=== PATIENT | female | born 1940 | race Asian ===

== ENCOUNTER 2018-06-09 10:32 | Emergency (ER) | payer OTHER, MEDICARE ==
[2018-06-09] MEDS ORDERED: TYLENOL ONE (10:37)
[2018-06-09] MEDS ORDERED: TYLENOL PO ONE (10:38)
[2018-06-09 11:46] LABS: Basophils % (Auto) 0.3 % (0.0-1.8); Eosinophils % (Auto) 0.1 % (0.0-4.3); Hematocrit 29.9 % (30.3-42.9); Lymphocytes # (Auto) 1.3 K/mm3 (1.2-5.4); Lymphocytes % (Auto) 14.3 % (13.4-35.0); Mean Corpuscular HGB Conc 34 % (30-34); Mean Corpuscular Hemoglobin 30 pg (28-32); Mean Corpuscular Volume 89 fl (79-97); Monocytes # (Auto) 1.2 K/mm3 (0.0-0.8); Monocytes % (Auto) 12.4 % (0.0-7.3); Platelet Count 552 K/mm3 (140-440); Red Blood Count 3.35 M/mm3 (3.65-5.03); Red Cell Distribution Width 14.7 % (13.2-15.2)
--- NOTE | 2018-06-09 12:03 | XRay Report ---
ROUTINE CHEST, TWO VIEWS: HISTORY: Fever. The trachea, heart, mediastinal contour, lung brown and bony thorax are unremarkable. IMPRESSION: Unremarkable chest x-ray.
[2018-06-09 12:10] LABS: Alanine Aminotransferase 28 units/L (7-56); Albumin 3.4 g/dL (3.9-5); BUN/Creatinine Ratio 28; Blood Urea Nitrogen 14 mg/dL (7-17); Calcium 8.5 mg/dL (8.4-10.2); Hemolysis Index 5
--- NOTE | 2018-06-09 13:02 | Emergency Department Report ---
ED Lower Extremity HPI - General Chief Complaint: Fever Stated Complaint: FEVER/ LEG PAIN Time Seen by Provider: 06/09/18 12:46 Source: patient, family Mode of arrival: Wheelchair Limitations: Language Barrier - History of Present Illness Initial Comments: Mrs. Angeles is a healthy 77-year-old female who presents with right knee pain for 2-3 weeks. She's had intermittent swelling. Pain with movement. No injury. Last night she developed fever and shaking chills sweats. Daughter explained that the swelling has decreased in the right knee. She is able to move it better after receiving Tylenol. She does have a PCP. Daughter is unable to recall the name of PCP. Daughter at bedside provided language interpretation. MD Complaint: knee injury -: Gradual, week(s) (2-3) Injury: Knee: Right Severity: moderate Improves With: other (Tylenol) Worsens With: movement Associated Symptoms: swelling, able to partially bear weight - Related Data Previous Rx's Medication Instructions Recorded Last Taken Type Acetaminophen [Tylenol Extra 500 mg PO QID PRN #30 tablet 06/09/18 Unknown Rx Strength] Allergies Allergy/AdvReac Type Severity Reaction Status Date / Time No Known Allergies Allergy Unverified 06/09/18 10:36 ED Review of Systems ROS: Stated complaint: FEVER/ LEG PAIN Other details as noted in HPI Comment: All other systems reviewed and negative Constitutional: fever ENT: denies: throat pain Respiratory: denies: cough Cardiovascular: denies: chest pain Gastrointestinal: denies: abdominal pain, nausea ED Past Medical Hx - Past Medical History Previous Medical History?: No - Surgical History Past Surgical History?: No - Social History Smoking Status: Never Smoker Substance Use Type: None - Medications Home Medications: Home Medications Medication Instructions Recorded Confirmed Last Taken Type Acetaminophen [Tylenol Extra 500 mg PO QID PRN #30 tablet 06/09/18 Unknown Rx Strength] ED Physical Exam - General Limitations: Language Barrier General appearance: alert, in no apparent distress - Head Head exam: Present: atraumatic, normocephalic - Eye Eye exam: Present: normal appearance - ENT ENT exam: Present: mucous membranes moist - Neck Neck exam: Present: normal inspection. Absent: tenderness, meningismus - Respiratory Respiratory exam: Present: normal lung sounds bilaterally. Absent: respiratory distress, wheezes, rales, rhonchi - Cardiovascular Cardiovascular Exam: Present: regular rate, normal rhythm, normal heart sounds. Absent: bradycardia, tachycardia, systolic murmur, diastolic murmur, rubs, gallop - GI/Abdominal GI/Abdominal exam: Present: soft, normal bowel sounds. Absent: distended, tenderness, guarding, rebound - Extremities Exam Extremities exam: Present: other - Expanded Lower Extremity Exam Right Knee exam: Present: full ROM, swelling (slightly edematous compared to left), full knee extension. Absent: tenderness, deformity, crepidus, erythema, effusion, pain w/ pronation/supination, posterior draw sign, pain/laxity with varus - Back Exam Back exam: Present: normal inspection - Neurological Exam Neurological exam: Present: alert, oriented X3 - Psychiatric Psychiatric exam: Present: normal affect, normal mood - Skin Skin exam: Present: warm, dry, intact, normal color. Absent: rash ED Course Vital Signs 06/09/18 06/09/18 10:36 11:39 Temperature 103 F H 99.4 F Pulse Rate 94 H 90 Respiratory 22 18 Rate Blood Pressure 133/71 103/54 O2 Sat by Pulse 95 95 Oximetry ED Lower Extremity MDM - Lab Data Result diagrams: 06/09/18 11:26 06/09/18 11:26 Laboratory Results - last 24 hr 06/09/18 06/09/18 11:26 11:26 WBC 9.4 RBC 3.35 L Hgb 10.0 L Hct 29.9 L MCV 89 MCH 30 MCHC 34 RDW 14.7 Plt Count 552 H Lymph % (Auto) 14.3 [place] % (Auto) 12.4 H Eos % (Auto) 0.1 Baso % (Auto) 0.3 Lymph # 1.3 [place] # 1.2 H Eos # 0.0 Baso # 0.0 Seg Neutrophils % 72.9 H Seg Neutrophils # 6.8 Sodium 135 L Potassium 4.0 Chloride 99.8 Carbon Dioxide 23 Anion Gap 16 BUN 14 Creatinine 0.5 L Estimated GFR > 60 BUN/Creatinine Ratio 28 Glucose 144 H Calcium 8.5 Total Bilirubin 0.30 AST 25 ALT 28 Alkaline Phosphatase 83 Total Protein 7.3 Albumin 3.4 L Albumin/Globulin Ratio 0.9 - Radiology Data Radiology results: report reviewed no acute process - Medical Decision Making Mrs. Angeles is a healthy 77 yo female with 2-3 weeks of right knee pain and intermittent swelling. I suspect DJD. No clinical signs of septic arthritis. No erythema. NO effusion. No warmth. She has good range of motion. Pain is managed with tylenol. I have referred her to orthopedic surgeon. She has developed fever last night subsequent to knee pain. Normal WBC. Critical care attestation.: If time is entered above; I have spent that time in minutes in the direct care of this critically ill patient, excluding procedure time. ED Disposition Clinical Impression: Knee pain, right, DJD (degenerative joint disease) of knee Disposition: [id number] TO HOME OR SELFCARE Is pt being admited?: No Does the pt Need Aspirin: No Condition: Stable Instructions: Osteoarthritis (ED) Prescriptions: Acetaminophen [Tylenol Extra Strength] 500 mg PO QID PRN #30 tablet PRN Reason: Pain , Severe (7-10)
[2018-06-09 13:59] LABS: Bacteria,Urine 2+ /HPF (Negative); Bilirubin,Urine NEG (Negative); Blood,Urine SM (Negative); Color,Urine Yellow (Yellow); Mucus,Urine FEW /HPF
[2018-06-09] MEDS ORDERED: KEFLEX PO ONE (14:38)
[2018-06-09 15:34] VITALS: BP 126/70
== END 2018-06-09 15:34 | disposition home or self-care (01) ==
LOC: ED 10:32
DX: M25.561 Pain in right knee (principal)
CPT/HCPCS: 36415; 71046; 80053; 81001; 85025; 87040; 99284